=== PATIENT | female | born 1970 | race African-American/Black ===

== ENCOUNTER 2021-03-08 10:35 | Inpatient (IN) | payer MEDICAID ==
[~2021-03-08] VITALS: Ht 162.6 cm; Wt 106.2 kg
[2021-03-08] MEDS ORDERED: TRAMADOL 50MG TABLET PO ONE (11:15)
[2021-03-08] MEDS ORDERED: NITROGLYCERIN OINT 1GM/INCH UDPKT TD ONE (11:15)
[2021-03-08] MEDS ORDERED: ASPIRIN 81MG TABLET PO ONE (11:15)
[2021-03-08 11:32] LABS: BASOPHILS % 0.5 % (0.0-2.0); EOSINOPHILS % 0.9 % (0.0-5.0); HEMATOCRIT. 34.3 % (36.0-48.0); HEMOGLOBIN. 11.7 g/dL (12.0-16.0); LYMPHOCYTES % 38.7 % (20.0-50.0); MEAN CORPUSCULAR VOLUME 88.2 fL (81.0-99.0); MONOCYTES % 5.6 % (2.0-8.0); NEUTROPHILS % 54.3 % (40.0-76.0); PLATELET 290 x1000/uL (130-400); RED BLOOD CELL COUNT 3.89 mill/uL (4.2-5.4); RED CELL DISTRIBUTION WIDTH 14.9 % (11.6-14.6)
[2021-03-08 11:40] LABS: CHLORIDE 107 mEq/L (98-107)
[2021-03-08] MEDS: ENALAPRIL 5MG TABLET PO SCH (12:35)
[2021-03-08 14:54] LABS: CLARITY URINE CLEAR (CLEAR); COLOR URINE YELLOW (YELLOW); KETONES URINE NEGATIVE (NEGATIVE); LEUKOCYTE ESTERASE URINE NEGATIVE (NEGATIVE); NITRITE URINE NEGATIVE (NEGATIVE); OCCULT BLOOD URINE NEGATIVE (NEGATIVE); PROTEIN URINE NEGATIVE (NEGATIVE); SPECIFIC GRAVITY URINE 1.013 (1.005-1.030); UROBILINOGEN URINE 0.2 E.U./dL (0.2-1.0)
[2021-03-08 16:39] VITALS: BP 119/67
[2021-03-08] MEDS ORDERED: HYDROCODONE/ACETAMINOPHEN 5/325MG TABLET PO PRN (17:15)
[2021-03-08] MEDS ORDERED: HYDRALAZINE 20MG/ML VIAL IV PRN (17:15)
[2021-03-08] MEDS ORDERED: IPRATROPIUM/ALBUTEROL 0.5-3(2.5)MG/3ML NEB HHN PRN (17:15)
[2021-03-08] MEDS ORDERED: LORAZEPAM 2MG/ML CPJ IV PRN (17:15)
[2021-03-08] MEDS ORDERED: MAGNESIUM/ALUMINUM HYDROXIDE/SIMETHICONE 30ML UDC PO PRN (17:15)
[2021-03-08] MEDS ORDERED: DOCUSATE SODIUM 100MG CAPSULE PO PRN (17:15)
[2021-03-08] MEDS ORDERED: DIPHENHYDRAMINE 50MG/ML VIAL IV PRN (17:15)
[2021-03-08] MEDS ORDERED: GUAIFENESIN 200MG/10ML SUGAR FREE UDC PO PRN (17:15)
[2021-03-08] MEDS ORDERED: DEXTROSE 50% WATER 50ML SYRINGE IV PRN (17:15)
[2021-03-08] MEDS ORDERED: ONDANSETRON HCL 4MG/2ML INJ IV PRN (17:15)
[2021-03-08] MEDS ORDERED: CLONIDINE 0.1MG TABLET PO PRN (17:15)
[2021-03-08] MEDS ORDERED: MORPHINE SULFATE 2 MG/ML CPJ (NOT FOR IM USE) IV PRN (17:15)
[2021-03-08] MEDS ORDERED: ACETAMINOPHEN 325MG TABLET PO PRN (17:15)
[2021-03-08] MEDS ORDERED: FERR-71 MT (17:29)
[2021-03-08] MEDS: INSULIN LISPRO 100 UNITS/ML SUBCUT SCH ×2 (17:40→21:00)
[2021-03-08 17:47] VITALS: BP 119/67
[2021-03-08] MEDS: BLOOD SUGAR DIAGNOSTIC STRIP TEST SCH ×2 (18:06→21:00)
[2021-03-08 20:00] VITALS: BP 125/70
[2021-03-08] MEDS: ENOXAPARIN 30MG/0.3ML SYR SUBCUT SCH (21:24)
[2021-03-08] MEDS: SODIUM CHLORIDE 0.9% INJ 3ML FLUSH IVF SCH (21:24)
[2021-03-09] VITALS: BP 108/61
[2021-03-09 00:04] LABS: CREATINE KINASE 145 IU/L (26-192)
[2021-03-09 00:05] LABS: CREATINE KINASE MB FRACTION < 1.0 ng/mL (0.5-3.6)
[2021-03-09 04:00] VITALS: BP 112/64
[2021-03-09 05:51] LABS: CHLORIDE 110 mEq/L (98-107)
[2021-03-09 06:09] LABS: CREATINE KINASE 135 IU/L (26-192)
[2021-03-09 06:11] LABS: CREATINE KINASE MB FRACTION < 1.0 ng/mL (0.5-3.6)
[2021-03-09 06:21] LABS: BASOPHILS % 0.4 % (0.0-2.0); EOSINOPHILS % 1.2 % (0.0-5.0); HEMATOCRIT. 32.8 % (36.0-48.0); HEMOGLOBIN. 10.9 g/dL (12.0-16.0); MEAN CORPUSCULAR HEMOGLOBIN 29.1 pg (28.0-32.0); MEAN CORPUSCULAR VOLUME 87.9 fL (81.0-99.0); MEAN PLATELET VOLUME 8.4 fl (7.4-10.4); MONOCYTES % 6.1 % (2.0-8.0); NEUTROPHILS % 47.3 % (40.0-76.0); PLATELET 260 x1000/uL (130-400); RED BLOOD CELL COUNT 3.73 mill/uL (4.2-5.4); RED CELL DISTRIBUTION WIDTH 15.1 % (11.6-14.6)
[2021-03-09] MEDS: BLOOD SUGAR DIAGNOSTIC STRIP TEST SCH ×4 (07:10→21:00)
[2021-03-09] MEDS: INSULIN LISPRO 100 UNITS/ML SUBCUT SCH ×4 (07:40→21:00)
[2021-03-09 08:00] VITALS: BP 108/62
[2021-03-09] MEDS ORDERED: REGADENOSON 0.4 MG/5 ML IV ONE ×2 (08:00→12:48)
[2021-03-09 08:56] LABS: T4 FREE 0.74 ng/dL (0.76-1.46)
[2021-03-09] MEDS: ASPIRIN 81MG TABLET PO SCH (08:57)
[2021-03-09] MEDS: ENOXAPARIN 30MG/0.3ML SYR SUBCUT SCH ×2 (08:59→21:50)
[2021-03-09] MEDS: ENALAPRIL 5MG TABLET PO SCH (11:15)
[2021-03-09 12:00] VITALS: BP 115/49
[2021-03-09 15:58] LABS: CREATINE KINASE 140 IU/L (26-192)
[2021-03-09 16:01] LABS: CREATINE KINASE MB FRACTION < 1.0 ng/mL (0.5-3.6)
[2021-03-09] MEDS: SODIUM CHLORIDE 0.9% INJ 3ML FLUSH IVF SCH ×3 (17:47→22:00)
[2021-03-09 20:31] VITALS: BP 124/61
[2021-03-09 23:52] LABS: CREATINE KINASE 128 IU/L (26-192)
[2021-03-09 23:53] LABS: CREATINE KINASE MB FRACTION < 1.0 ng/mL (0.5-3.6)
[2021-03-10 00:06] VITALS: BP 142/81
[2021-03-10 04:00] VITALS: BP 115/63
[2021-03-10] MEDS: SODIUM CHLORIDE 0.9% INJ 3ML FLUSH IVF SCH ×2 (06:32→14:38)
[2021-03-10 06:50] LABS: BASOPHILS % 0.4 % (0.0-2.0); EOSINOPHILS % 1.3 % (0.0-5.0); HEMATOCRIT. 34.1 % (36.0-48.0); HEMOGLOBIN. 11.6 g/dL (12.0-16.0); LYMPHOCYTES % 46.8 % (20.0-50.0); MEAN CORPUSCULAR HEMOGLOBIN 30.2 pg (28.0-32.0); MEAN CORPUSCULAR VOLUME 88.3 fL (81.0-99.0); MEAN PLATELET VOLUME 8.7 fl (7.4-10.4); MONOCYTES % 6.3 % (2.0-8.0); NEUTROPHILS % 45.2 % (40.0-76.0); PLATELET 256 x1000/uL (130-400); RED BLOOD CELL COUNT 3.86 mill/uL (4.2-5.4); RED CELL DISTRIBUTION WIDTH 14.9 % (11.6-14.6)
[2021-03-10 06:51] LABS: CHLORIDE 110 mEq/L (98-107)
[2021-03-10 07:01] LABS: CREATINE KINASE 115 IU/L (26-192)
[2021-03-10 07:03] LABS: CREATINE KINASE MB FRACTION < 1.0 ng/mL (0.5-3.6)
[2021-03-10] MEDS: INSULIN LISPRO 100 UNITS/ML SUBCUT SCH ×2 (07:09→11:50)
[2021-03-10] MEDS: BLOOD SUGAR DIAGNOSTIC STRIP TEST SCH ×2 (07:09→11:49)
[2021-03-10 08:00] VITALS: BP 116/71
[2021-03-10] MEDS: ASPIRIN 81MG TABLET PO SCH (09:21)
[2021-03-10] MEDS: ENOXAPARIN 30MG/0.3ML SYR SUBCUT SCH (09:22)
[2021-03-10 15:26] VITALS: BP 116/71
== END 2021-03-10 16:15 | disposition home or self-care (01) | DRG 203 ==
LOC: ER 11:28 → EDBEDREQ 11:47 → 8WST 12:05 → EDBEDREQ 12:07 → EDBEDREQTM 12:07 → ENRESERV 12:45
PROVIDERS: ADMIT Internal Medicine; ATTEND Internal Medicine
DX: M94.0 Chondrocostal junction syndrome [Tietze] (principal); I11.9 Hypertensive heart disease without heart failure; E66.01 Morbid (severe) obesity due to excess calories; D64.9 Anemia, unspecified; E11.9 Type 2 diabetes mellitus without complications; E78.5 Hyperlipidemia, unspecified; E78.00 Pure hypercholesterolemia, unspecified; Z83.3 Family history of diabetes mellitus; Z80.3 Family history of malignant neoplasm of breast; Z98.51 Tubal ligation status; Z68.41 Body mass index [BMI] 40.0-44.9, adult; Z20.822 Contact with and (suspected) exposure to COVID-19
CPT/HCPCS: 36415; 71045; 78452; 80048; 80053; 80061; 81003; 82550; 82553; 82962; 83036; 83880; 84439; 84443; 84484; 85025; 85379; 87426; 93005; 93017; 93306; 93970; 99285; A9500; J1650; J2785